=== PATIENT | female | born 1975 | race Caucasian/White ===

== ENCOUNTER 2018-12-29 19:10 | Emergency (ER) | payer OTHER ==
[~2018-12-29] VITALS: Ht 165.1 cm; Wt 61.2 kg
--- OUTSIDE RECORDS SUMMARY | 2018-12-29 19:13 | XMS REPORT ---
Author [facility] Address Unknown Phone Unavailable Care Team Providers Care Cash Control Specialist Name Role Phone Unavailable Unavailable Payers Payer Name Policy Type Policy Number Effective Date Expiration Date Problems This patient has no known problems. Allergies, Adverse Reactions, Alerts Allergy Name Allergy Type Status Severity Reaction(s) Onset Date Inactive Date Treating Clinician Comments No Known Allergies DA Active U 2017-12-27 00:00:00 Medications This patient has no known medications. Results Test Description Test Time Test Comments Text Results Atomic Results Result Comments - XR FOOT 3+V RT 2018-06-11 11:58:00 Patient Name: YEIMI ORTIZ Unit No: [id number] EXAMS: CPT CODE: [id number] XR FOOT 3+[place] [address] LOCATION: T18 EXAM: RIGHT FOOT 3 VIEWS INDICATION: Right foot pain COMPARISON: None. TECHNIQUE: AP, lateral and oblique radiographs of the right foot FINDINGS: Medial forefoot soft tissue swelling noted. There is mild hallux valgus present. No acute fracture is seen. Tarsal bones are normal in alignment. Small plantar calcaneal spur noted. IMPRESSION: Medial forefoot soft tissue swelling. No acute fracture. Mild hallux valgus. at 1158 Reported and signed by: Timo David MD CC: Luis Alfredo ALMONTE; Tommy Hampton MD Technologist: RT Romeo(R) Transcrpt Date/Tm/Trnsp: 06/11/2018 ([id number]) [email or web address] Orig Print D/T: S: 06/11/2018 ([id number]) [facility] NAME: YEIMI ORTIZ [id number] PHYS: [email or web address] - [place] [address] : 1975 AGE: 43 SEX: F LOC: [id number] PHONE #: [phone] EXAM DATE: 06/11/2018 STATUS: PRE ER FAX #: [phone] RADIOLOGY NO: PAGE 1 Signed Report
[2018-12-29] MEDS ORDERED: EPINEPHRINE HCL 1:1000 1ML 1 MG/ML AMP ONE (19:24)
[2018-12-29] MEDS ORDERED: METHYLPREDNISOLONE SOD SUCC 125 MG/2ML VIAL ONE (19:24)
[2018-12-29] MEDS ORDERED: EPINEPHRINE HCL 1:1000 1ML 1 MG/ML AMP INJ ONE (19:30)
[2018-12-29] MEDS ORDERED: METHYLPREDNISOLONE SOD SUCC 125 MG/2ML VIAL IM ONE (19:30)
== END 2018-12-29 20:13 | disposition home or self-care (01) ==
LOC: FSED 19:10
DX: L50.0 Allergic urticaria (principal)
CPT/HCPCS: 99282; J0171; J2930

== ENCOUNTER → 2020-10-29 | Outpatient (CLI) | payer OTHER ==
[~2020-10-29] MED LIST: COVID-19 VAC,AD26(JANSSEN)/PF 2.5 ML VIAL IM ONE; EPINEPHRINE HCL 1:1000 1ML 1 MG/ML AMP ONE
== END ==
LOC: VACCPMC 20:43
DX: Z23 Encounter for immunization (principal); Z20.822 Contact with and (suspected) exposure to COVID-19
CPT/HCPCS: 91303; J0171

== ENCOUNTER 2021-05-27 07:19 | Emergency (ER) | payer BC, OTHER ==
[~2021-05-27] VITALS: Ht 165.1 cm; Wt 65.8 kg
[2021-05-27] MEDS ORDERED: IOPAMIDOL 370 MG/ML 200 ML INFUS..BTL INJ ONE (07:58)
[2021-05-27] MEDS ORDERED: SODIUM CHLORIDE 0.9% 50ML 50 ML ONE (07:58)
== END 2021-05-27 08:55 | disposition home or self-care (01) ==
LOC: FSED 07:22
DX: K08.89 Other specified disorders of teeth and supporting structures (principal); M25.48 Effusion, other site; J45.909 Unspecified asthma, uncomplicated; G10 Huntington's disease; Z87.442 Personal history of urinary calculi
CPT/HCPCS: 70487; 80053; 99284; Q9967